=== PATIENT | male | born 1965 | race Caucasian/White ===

== ENCOUNTER 2017-10-24 11:20 | Emergency (ER) | payer OTHER ==
[2017-10-24] MEDS ORDERED: Diphtheria,Pertussis(Acell),Tetanus Vaccine 0.5 ML Syringe IM ONE (11:31)
[2017-10-24] MEDS ORDERED: Ketorolac 30 MG/ML SDV IVPUSH ONE (11:43)
[2017-10-24] MEDS ORDERED: Sodium Chloride 0.9% 10 ML Syringe FLUSH PRN (11:43)
[2017-10-24] MEDS ORDERED: Sodium Chloride 0.9% 1,000 ML IV ONE (11:43)
[2017-10-24] MEDS ORDERED: Sodium Chloride 0.9% 2.5 ML Syringe FLUSH PRN (11:43)
--- NOTE | 2017-10-24 11:43 | EDM.PDOC ---
ED HPI GENERAL MEDICAL PROBLEM - General Chief Complaint: Trauma Stated Complaint: FELL OFF TRUCK, HIT HIS HEAD. Time Seen by Provider: 10/24/17 11:31 Source of Information: Reports: Patient History Limitations: Reports: No Limitations - History of Present Illness INITIAL COMMENTS - FREE TEXT/NARRATIVE: HISTORY AND PHYSICAL: History of present illness: Patient is a 51-year-old male brought in by friends after falling 12 feet from his truck. 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 He is uncertain exactly what happened before and after. He states that his friend found him just sitting on the ground although he does not recall what happened. He complains of pain on his right shoulder clavicle, right knee, right-sided face and back of head. He denies any vomiting since the incident. He denies any abdominal pain, and nausea, vomiting , diarrhea. Review of systems: As per history of present illness and below otherwise all systems reviewed and negative. Past medical history: As per history of present illness and as reviewed below otherwise noncontributory. Surgical history: As per history of present illness and as reviewed below otherwise noncontributory. Social history: No reported history of drug or alcohol abuse. Family history: As per history of present illness and as reviewed below otherwise noncontributory. Physical exam: General: Patient lying comfortably in bed in no acute distress HEENT: Ecchymosis and pain to palpation of the right zygomatic arch. There is a jagged 3cm laceration to the posterior scalp. normocephalic, pupils reactive, negative for conjunctival pallor or scleral icterus, mucous membranes moist, throat clear, neck supple, nontender, trachea midline. Lungs: Clear to auscultation, breath sounds equal bilaterally, chest nontender. Heart: S1S2, regular, negative for clicks, rubs, or overt murmur Abdomen: Soft, nondistended, nontender. Negative for masses or hepatosplenomegaly. Negative for costovertebral tenderness. Pelvis: Stable nontender. Genitourinary: Deferred. Rectal: Deferred. Extremities: Abrasions to the left anterior and medial knee. Pain to palpation along the right clavicle. No crepitus noted. Negative for cords or calf pain. Neurovascular unremarkable. Neuro: Awake, alert, oriented. Cranial nerves II through XII unremarkable. Cerebellum unremarkable. Motor and sensory unremarkable throughout. Exam nonfocal. Notes: Diagnostics: x-ray right knee, x-ray right clavicle, x-ray right shoulder, CT head, CT cervical spine, CT maxillofacial CBC, CMP, PT/INR, EKG Therapeutics: 1 L Normal Saline 30mg Toradol IV Impression: Concussion Head laceration Midshaft clavicle fracture Rib fracture anterior maxillary spinous process fracture Plan: 1. Alternate motrin and tylenol as needed for pain. May take Eland as needed for severe pain 2. Wear sling as discussed and follow up with ortho for clavicle fracture 3. Follow up in 7-10 days for staple removal, keep the area clean and dry 4. Return to ED as needed as discussed Definitive disposition and diagnosis as appropriate pending reevaluation and review of above. right shoulder;head Pain Score (Numeric/FACES): 4 - Related Data Allergies Allergy/AdvReac Type Severity Reaction Status Date / Time No Known Allergies Allergy Verified 10/24/17 12:05 Home Meds: Home Meds . [No Known Home Meds] 10/24/17 [History] ED ROS GENERAL - Review of Systems Review Of Systems: ROS reveals no pertinent complaints other than HPI. ED EXAM, HEAD INJURY - Physical Exam Exam: See Below (see dictation) ED LACERATION/WOUND & JUAN PROC - Laceration/Wound Repair Posterior Occipital Head Lac/wound length in cm: 6 Appearance: Superficial Distal NVT: Neuro & Vascular Intact, No Tendon Injury Skin Prep: Saline Exploration/Debridement/Repair: Wound Explored, In a Bloodless Field, Explored to Base Closed with: Johnny # of Sutures: 6 Course - Vital Signs Last Recorded V/S: Last Vital Signs Temp 36.4 C 10/24/17 11:20 Pulse 72 10/24/17 12:56 Resp 16 10/24/17 12:56 BP 111/80 10/24/17 12:56 Pulse Ox 98 10/24/17 12:56 - Orders/Labs/Meds Orders: Active Orders 24 hr Category Date Time Status Vaccines to be Administered [RC] PER UNIT ROUTINE Care 10/24/17 11:31 Active Cervical Spine wo Cont [CT] Stat Exams 10/24/17 11:27 Taken Clavicle Rt [CR] Stat Exams 10/24/17 11:27 Taken Head wo Cont [CT] Stat Exams 10/24/17 11:27 Taken Knee 3V Rt [CR] Stat Exams 10/24/17 11:27 Taken Max Facial Sinus wo Cont [CT] Stat Exams 10/24/17 11:27 Taken Shoulder Comp Rt [CR] Stat Exams 10/24/17 11:27 Taken Sodium Chloride 0.9% [Saline Flush] Med 10/24/17 11:43 Active 10 ml FLUSH ASDIRECTED PRN Sodium Chloride 0.9% [Saline Flush] Med 10/24/17 11:43 Active 2.5 ml FLUSH ASDIRECTED PRN Saline Lock Insert [OM.PC] Stat Oth 10/24/17 11:42 Ordered Medication Orders Sodium Chloride (Saline Flush) 10 ml FLUSH ASDIRECTED PRN PRN Reason: Keep Vein Open Last Admin: 10/24/17 12:48 Dose: 10 ml Sodium Chloride (Saline Flush) 2.5 ml FLUSH ASDIRECTED PRN PRN Reason: Keep Vein Open Last Admin: 10/24/17 12:48 Dose: 2.5 ml Labs: Laboratory Tests 10/24/17 10/24/17 10/24/17 Range/Units 11:55 11:55 11:55 WBC 6.96 (4.0-11.0) K/uL RBC 4.70 (4.50-5.90) M/uL Hgb 14.7 (13.0-17.0) g/dL Hct 42.9 (38.0-50.0) % MCV 91.3 (80.0-98.0) fL MCH 31.3 (27.0-32.0) pg MCHC 34.3 (31.0-37.0) g/dL RDW Std Deviation 42.8 (28.0-62.0) fl RDW Coeff of Nona 13 (11.0-15.0) % Plt Count 248 (150-400) K/uL MPV 10.30 (7.40-12.00) fL Neut % (Auto) 67.8 (48.0-80.0) % Lymph % (Auto) 21.7 (16.0-40.0) % Crane % (Auto) 7.9 (0.0-15.0) % Eos % (Auto) 1.9 (0.0-7.0) % Baso % (Auto) 0.7 (0.0-1.5) % Neut # (Auto) 4.7 (1.4-5.7) K/uL Lymph # (Auto) 1.5 (0.6-2.4) K/uL Crane # (Auto) 0.6 (0.0-0.8) K/uL Eos # (Auto) 0.1 (0.0-0.7) K/uL Baso # (Auto) 0.1 (0.0-0.1) K/uL Nucleated RBC % 0.0 /100WBC Nucleated RBCs # 0 K/uL INR 1.07 Sodium 140 (136-148) mmol/L Potassium 4.4 (3.5-5.1) mmol/L Chloride 104 (98-107) mmol/L Carbon Dioxide 30.8 (21.0-32.0) mmol/L BUN 19 H (7.0-18.0) mg/dL Creatinine 1.4 H (0.8-1.3) mg/dL Est Cr Clr Drug Dosing TNP Estimated GFR (MDRD) 53.9 ml/min Glucose 138 H (74-106) mg/dL Calcium 9.0 (8.5-10.1) mg/dL Total Bilirubin 0.5 (0.2-1.0) mg/dL AST 22 (15-37) IU/L ALT 23 (14-63) IU/L Alkaline Phosphatase 69 (46-116) U/L Total Protein 7.4 (6.4-8.2) g/dL Albumin 4.2 (3.4-5.0) g/dL Globulin 3.2 (2.0-3.5) g/dL Albumin/Globulin Ratio 1.3 (1.3-2.8) Meds: Medications Generic Name Dose Route Start Last Admin Trade Name Freq PRN Reason Stop Dose Admin Sodium Chloride 10 ml 10/24/17 11:43 10/24/17 12:48 Saline Flush FLUSH 10 ml ASDIRECTED PRN Administration Keep Vein Open Sodium Chloride 2.5 ml 10/24/17 11:43 10/24/17 12:48 Saline Flush FLUSH 2.5 ml ASDIRECTED PRN Administration Keep Vein Open Discontinued Medications Generic Name Dose Route Start Last Admin Trade Name Freq PRN Reason Stop Dose Admin Bacitracin 2 dose 10/24/17 11:47 10/24/17 12:51 Bacitracin Oint 1 Gm TOP 10/24/17 11:48 2 dose ONETIME ONE Administration Diphtheria/Tetanus/Acell Pertussis 0.5 ml 10/24/17 11:31 10/24/17 11:38 Adacel IM 10/24/17 11:32 0.5 ml .ONCE ONE Administration Sodium Chloride 1,000 mls @ 999 mls/hr 10/24/17 11:43 10/24/17 12:48 Normal Saline IV 10/24/17 12:43 999 mls/hr STAT ONE Administration Ketorolac Tromethamine 30 mg 10/24/17 11:43 10/24/17 12:48 Toradol IVPUSH 10/24/17 11:44 30 mg ONETIME ONE Administration Departure - Departure Time of Disposition: 14:20 Disposition: Home, Self-Care 01 Condition: Good Clinical Impression: Clavicle fracture, Rib fracture, Concussion, Laceration - Discharge Information Referrals: PCP,None [Primary Care Provider] - Forms: ED Department Discharge Additional Instructions: The following information is given to patients seen in the emergency department who are being discharged to home. This information is to outline your options for follow-up care. We provide all patients seen in our emergency department with a follow-up referral. The need for follow-up, as well as the timing and circumstances, are variable depending upon the specifics of your emergency department visit. If you don't have a primary care physician on staff, we will provide you with a referral. We always advise you to contact your personal physician following an emergency department visit to inform them of the circumstance of the visit and for follow-up with them and/or the need for any referrals to a consulting specialist. The emergency department will also refer you to a specialist when appropriate. This referral assures that you have the opportunity for follow-up care with a specialist. All of these measure are taken in an effort to provide you with optimal care, which includes your follow-up. Under all circumstances we always encourage you to contact your private physician who remains a resource for coordinating your care. When calling for follow-up care, please make the office aware that this follow-up is from your recent emergency room visit. If for any reason you are refused follow-up, please contact the [facility] Emergency Department at and asked to speak to the emergency department charge nurse. [facility] [address] [place] [id number] [facility] - Orthopedic Clinic Professional [address], [address] [address] [facility] - Plastic Surgery [address], [address] [address] 1. Alternate motrin and tylenol as needed for pain. May take Eland as needed for severe pain 2. Wear sling as discussed and follow up with ortho for clavicle fracture 3. Follow up in 7-10 days for staple removal, keep the area clean and dry 4. Return to ED as needed as discussed - My Orders Last 24 Hours: My Active Orders 10/24/17 11:27 Cervical Spine wo Cont [CT] Stat Clavicle Rt [CR] Stat Head wo Cont [CT] Stat Knee 3V Rt [CR] Stat Max Facial Sinus wo Cont [CT] Stat Shoulder Comp Rt [CR] Stat 10/24/17 11:42 Saline Lock Insert [OM.PC] Stat 10/24/17 11:43 Sodium Chloride 0.9% [Saline Flush] 10 ml FLUSH ASDIRECTED PRN Sodium Chloride 0.9% [Saline Flush] 2.5 ml FLUSH ASDIRECTED PRN - Assessment/Plan Last 24 Hours: My Active Orders 10/24/17 11:27 Cervical Spine wo Cont [CT] Stat Clavicle Rt [CR] Stat Head wo Cont [CT] Stat Knee 3V Rt [CR] Stat Max Facial Sinus wo Cont [CT] Stat Shoulder Comp Rt [CR] Stat 10/24/17 11:42 Saline Lock Insert [OM.PC] Stat 10/24/17 11:43 Sodium Chloride 0.9% [Saline Flush] 10 ml FLUSH ASDIRECTED PRN Sodium Chloride 0.9% [Saline Flush] 2.5 ml FLUSH ASDIRECTED PRN
[2017-10-24] MEDS ORDERED: Bacitracin Oint 1 GM U/D Packet TOP ONE (11:47)
[2017-10-24 12:24] LABS: CHLORIDE,CL 104 mmol/L (98-107); SODIUM,NA 140 mmol/L (136-148)
--- NOTE | 2017-10-26 11:10 | CR ---
EXAM DATE: 10/24/17 PATIENT'S AGE: 51 Patient: CLAUDIA ROCK Facility: [place], [place] Site . Site : 1965 Study: XRay Knee Right [id number]/18/2018 12:16:07 PM Ordering Physician: Doctor Bermudez Final Report: INDICATION: fall from 12 feet/ scrapes on right knee INDICATION: Fall. TECHNIQUE: Right knee, three views. COMPARISON: None FINDINGS: Bones: Alignment is normal. No fractures or bone lesions. Joint spaces: Unremarkable. Soft tissues: Unremarkable. IMPRESSION: There is no acute bone abnormality. The joint spaces are preserved. Dictated by Manpreet Matias MD @ 10/24/2017 12:57:31 PM Dictated by: Manpreet Matias MD @ 10/24/2017 12:57:38 (Electronic Signature) Report Signed by Proxy. [facility]
--- NOTE | 2017-10-26 11:12 | CR ---
EXAM DATE: 10/24/17 PATIENT'S AGE: 51 Patient: CLAUDIA ROCK Facility: [place], [place] Site . Site : 1965 Study: XRay Shoulder Right [id number]/18/2018 12:27:00 PM Ordering Physician: Doctor Bermudez Final Report: INDICATION: Trauma, pain, 12 foot fall. TECHNIQUE: Two-view right shoulder COMPARISON: None FINDINGS: There is no acute 2 centimeter displaced midshaft right clavicular fracture with subtle nondisplaced right posterior lateral 4th and 5th rib fractures no pneumothorax or hemothorax is seen. No other fracture or right shoulder dislocation is present. IMPRESSION: Acute displaced midshaft right clavicular and mildly displaced right posterior lateral 4th and 5th rib fractures. No shoulder dislocation or other fracture is seen. Dictated by Edison Coombs MD @ Oct 24 2017 12:56PM (Electronic Signature) Report Signed by Proxy. ALAN
--- NOTE | 2017-10-26 11:13 | CR ---
EXAM DATE: 10/24/17 PATIENT'S AGE: 51 Patient: CLAUDIA ROCK Facility: [place], [place] Site . Site : 1965 Study: XRay Shoulder Right clavicle [id number]/18/2018 12:33:30 PM Ordering Physician: Doctor Bermudez Final Report: INDICATION: Fall. TECHNIQUE: Two views of the right clavicle. FINDINGS: Comminuted fracture of the midshaft of the clavicle. The major distal fracture fragment is caudal to the major proximal fracture fragment by the width of the shaft of the clavicle. Normal acromioclavicular relationship. No dislocation at the shoulder. IMPRESSION: Comminuted fracture of the shaft of the right clavicle. Dictated by Krzysztof Barger MD @ Oct 24 2017 1:04PM (Electronic Signature) Report Signed by Proxy. ALAN
--- NOTE | 2017-10-26 11:15 | CT ---
EXAM DATE: 10/24/17 PATIENT'S AGE: 51 Patient: CLAUDIA ROCK Facility: [place], [place] Site . Site : 1965 Study: CT Head WO CONT [id number]/18/2018 12:44:26 PM Ordering Physician: Doctor Bermudez Final Report: INDICATION: Trauma; fell from 12 feet; does not remember the fall; laceration to the back of the head. COMPARISON: None. TECHNIQUE: CT head without intravenous contrast; coronal and sagittal reformats. FINDINGS: No intracranial hemorrhage. No mass lesions. No evidence of shift of the midline structures. The calvarium is unremarkable. The ventricular system, the subarachnoid cisterns and the cerebral sulci are unremarkable. Laceration right posterior occipital area in the scalp. IMPRESSION: Negative unenhanced head CT. Please note that all CT scans at this facility use dose modulation, iterative reconstruction, and/or weight-based dosing when appropriate to reduce radiation dose to as low as reasonably achievable. Dictated by Linda Ott MD @ Oct 24 2017 1:19PM (Electronic Signature) Report Signed by Proxy. [facility]
--- NOTE | 2017-10-26 11:16 | CT ---
EXAM DATE: 10/24/17 PATIENT'S AGE: 51 Patient: CLAUDIA ROCK Facility: [place], [place] Site . Site : 1965 Study: CT Facial WO CONT [id number]/18/2018 12:45:22 PM Ordering Physician: Doctor Bermudez Final Report: INDICATION: Trauma. Patient fell 12 feet. TECHNIQUE: A CT volumetric acquisition was performed of the facial bones without IV contrast. FINDINGS: There is a tiny fracture noted off the tip of the anterior maxillary spinous process. The nasal septum remains intact and has a midline position. No fractures are noted within the bridge of the nasal bones. The bony orbits appear intact with no evidence of intraorbital emphysema. There is anatomic alignment of the temporomandibular joints. There is no evidence of a fracture within the mandible. The zygomatic arches and pterygoid plates appear intact. There is normal aeration of the paranasal sinuses. The mastoid air cells and middle ear cavities are clear. IMPRESSION: Small fracture noted off the tip of the anterior maxillary spinous process. The remaining facial bones appear intact. Please note that all CT scans at this facility use dose modulation, iterative reconstruction, and/or weight-based dosing when appropriate to reduce radiation dose to as low as reasonably achievable. Dictated by Stuart Johnson MD @ Oct 24 2017 1:27PM (Electronic Signature) Report Signed by Proxy. [facility]
--- NOTE | 2017-10-26 11:17 | CT ---
EXAM DATE: 10/24/17 PATIENT'S AGE: 51 Patient: CLAUDIA ROCK Facility: [place], [place] Site . Site : 1965 Study: CT Spine Cervical WO CONT [id number]/18/2018 12:48:42 PM Ordering Physician: Doctor Bermudez Final Report: CLINICAL INDICATION: Trauma . TECHNIQUE: Volumetric CT acquisition of the cervical spine with multiplanar reconstruction. FINDINGS: The cranial cervical junction is intact. Cervical vertebral bodies are normal in height and alignment. There is no acute fracture or subluxation. Lateral masses and posterior elements are intact. Prevertebral soft tissues are normal. Disc spaces are maintained. IMPRESSION: No acute abnormality of the cervical spine. Please note that all CT scans at this facility use dose modulation, iterative reconstruction, and/or weight-based dosing when appropriate to reduce radiation dose to as low as reasonably achievable. Dictated by Krzysztof Barger MD @ Oct 24 2017 1:15PM (Electronic Signature) Report Signed by Proxy. [facility]
== END 2017-10-24 14:53 | disposition home or self-care (01) ==
LOC: MW.ED 11:20
DX: S06.0X9A Concussion with loss of consciousness of unspecified duration, initial encounter (principal); S22.41XA Multiple fractures of ribs, right side, initial encounter for closed fracture; S42.021A Displaced fracture of shaft of right clavicle, initial encounter for closed fracture; S02.40CA Maxillary fracture, right side, initial encounter for closed fracture; S01.01XA Laceration without foreign body of scalp, initial encounter; Z23 Encounter for immunization; V89.9XXA Person injured in unspecified vehicle accident, initial encounter; Y99.0 Civilian activity done for income or pay
CPT/HCPCS: 12002; 36415; 70450; 70486; 72125; 73000; 73030; 73562; 80053; 85025; 85610; 90471; 90715; 93005; 96361; 96374; 99284; J1885; J7040; 99283